=== PATIENT | female | born 1990 | race Caucasian/White ===

== ENCOUNTER 2016-05-07 08:27 | Day surgery (SDC) | payer BC, OTHER ==
[2016-05-06 09:11] VITALS: BMI 23.1
[~2016-05-07 08:27] MED LIST: LACTATED RINGERS 1,000 ML IV SCH
[2016-05-07 08:56] VITALS: RESP 16; TEMP 97
[2016-05-07] MEDS ORDERED: LIDOCAINE 1% 20 ML VIAL (10MG/ML) FOR IV START INTRADERMA ONE (09:02)
[2016-05-07] MEDS ORDERED: MIDAZOLAM 2 MG/2 ML VIAL ONE (09:11)
[2016-05-07] MEDS ORDERED: PROPOFOL 10 MG/ML 20 ML VIAL IV ONE (09:11)
[2016-05-07] MEDS ORDERED: fentaNYL (PF) 50 MCG/ML 2 ML AMP ONE (09:11)
--- NOTE | 2016-05-07 09:26 | P.GSHP ---
History of Present Illness H&P Date: 05/07/16 Chief Complaint: Colitis, GI bleed This a 25-year-old female with history of colitis. Patient's had GI bleed. She presents today for colonoscopy. Past Medical History Additional Past Medical History / Comment(s): Hx. of Colitis-flare up currently History of Any Multi-Drug Resistant Organisms: None Reported Past Surgical History: Cholecystectomy Additional Past Surgical History / Comment(s): Colonoscopy x 2 Past Anesthesia/Blood Transfusion Reactions: No Reported Reaction Past Psychological History: No Psychological Hx Reported Smoking Status: Never smoker Past Alcohol Use History: Occasional Past Drug Use History: None Reported - Past Family History Mother Family Medical History: No Reported History Medications and Allergies Home Medications Medication Instructions Recorded Confirmed Type Multivitamins, Thera [Multivitamin] 1 tab PO DAILY 03/05/16 05/07/16 History [place]-3 Fatty Acids [[place]-3] 1,000 mg PO DAILY 03/05/16 05/07/16 History Allergies Allergy/AdvReac Type Severity Reaction Status Date / Time Penicillins Allergy Unknown Verified 05/07/16 08:56 Childhood Sulfa (Sulfonamide Allergy Unknown Verified 05/07/16 08:56 Antibiotics) Childhood aspirin AdvReac lightheaded Verified 05/07/16 08:56 Surgical - Exam Vital Signs Temp Pulse Resp BP Pulse Ox 97 F L 75 16 110/68 99 05/07/16 08:55 05/07/16 08:55 05/07/16 08:55 05/07/16 08:55 05/07/16 08:55 - General well developed, no distress - Eyes PERRL - ENT normal pinna - Neck no masses - Respiratory normal expansion - Cardiovascular Rhythm: regular - Abdomen Abdomen: soft, non tender Assessment and Plan Plan: History of colitis. GI bleed. We'll perform colonoscopy.
--- NOTE | 2016-05-07 09:36 | P.OP ---
Date of Procedure: 05/07/16 Preoperative Diagnosis: Colitis Postoperative Diagnosis: Colitis Procedure(s) Performed: Colonoscopy Anesthesia: MAC Surgeon: Tyson Simpson Pathology: other (Right colon, left colon, sigmoid colon and rectum) Condition: stable Disposition: PACU Description of Procedure: The patient's placed on the endoscopy table in the lateral position. She received IV sedation. Digital rectal exam was performed which revealed no abnormalities. Flexible colonoscope was then placed patient anus and passed throughout the entire colon. The ileocecal valve was visualized. The cecum appeared normal. In the distal ascending colon there previous of inflammation this area is biopsied. The inflammation seen and transverse colon. The scope was then brought back and the descending and sigmoid colon and there was evidence of inflammation. The descending colon and sigmoid colon biopsied. Scope summer back the rectum and there were some inflammatory changes in this area is biopsied as well. The scope was withdrawn for patient.
[2016-05-07 09:59] VITALS: BP 102/61; PULSE 71
== END 2016-05-07 10:23 | disposition home or self-care (01) ==
LOC: ORWHC2ENDO 08:27
PROVIDERS: ATTEND Surgery
DX: K52.9 Noninfective gastroenteritis and colitis, unspecified (principal); Z87.19 Personal history of other diseases of the digestive system; Z79.899 Other long term (current) drug therapy; Z88.0 Allergy status to penicillin; Z88.2 Allergy status to sulfonamides
CPT/HCPCS: 81025; 88305; 45380; J2250; J3010; J2704; 99153

== ENCOUNTER → 2018-09-06 | Outpatient (CLI) | payer BC | END | disposition home or self-care (01) | LOC: LABWHC1 11:12 | PROVIDERS: ATTEND Student in an Organized Health Care Education/Training Program | DX: K51.90 Ulcerative colitis, unspecified, without complications (principal); Z88.0 Allergy status to penicillin; Z88.2 Allergy status to sulfonamides; Z88.5 Allergy status to narcotic agent | CPT/HCPCS: 83993; 87045; 87046; 87324 ==

== ENCOUNTER → 2019-09-21 | Outpatient (CLI) | payer OTHER ==
[2019-09-21 11:55] LABS: HCT 34.2 % (34.0-46.0); HGB 10.6 gm/dL (11.4-16.0); Hypochromasia Slight; MCH 26.6 pg (25.0-35.0); MCHC 30.9 g/dL (31.0-37.0); MCV 86.2 fL (80.0-100.0); Mean Platelet Volume 7.6; Platelet Count 270 k/uL (150-450); RBC 3.97 m/uL (3.80-5.40); RDW 13.7 % (11.5-15.5); WBC 9.7 k/uL (3.8-10.6)
[2019-09-21 18:55] LABS: % Iron Saturation 10.29 (12.00-45.00); ALT 12 U/L (8-44); AST 14 U/L (13-35); African American GFR (CKD) 136.7 (60.0-200.0); Albumin/Globulin Ratio 1.59 (1.60-3.17); Alkaline Phosphatase 52 U/L (41-126); BUN/Creat Ratio 11.43 Ratio (12.00-20.00); C Reactive Protein <0.4 mg/dL (0.0-0.8); Calcium 9.4 mg/dL (8.7-10.3); Carbon Dioxide 30.1 mmol/L (21.6-31.8); Chloride 102 mmol/L (96-109); Ferritin 4.1 ng/mL (10.0-291.0); Folate, Serum >24.0 ng/mL; Globulin 2.7 g/dL (1.6-3.3); Glucose 79 mg/dL (70-110); Iron 39 ug/dL (50-170); Non-African American GFR(CKD) 117.9 (60.0-200.0); Potassium 4.3 mmol/L (3.5-5.5); Sodium 140 mmol/L (135-145); Total Bilirubin 0.5 mg/dL (0.3-1.2); Total Iron Binding Capacity 379 ug/dL (228-460)
== END | disposition home or self-care (01) ==
LOC: LABWHC1 11:04
PROVIDERS: ATTEND Student in an Organized Health Care Education/Training Program
DX: K51.90 Ulcerative colitis, unspecified, without complications (principal)
CPT/HCPCS: 36415; 80053; 82607; 82728; 82746; 83540; 83550; 83993; 85027; 86140; 87045; 87046; 87324

== ENCOUNTER → 2019-10-24 | Outpatient (CLI) | payer OTHER ==
[2019-10-24 21:26] LABS: Hepatitis B Surface Antigen Non-Reactive (Non-Reactive)
== END | disposition home or self-care (01) ==
LOC: LABWHC1 10:36
PROVIDERS: ATTEND Student in an Organized Health Care Education/Training Program
DX: K51.90 Ulcerative colitis, unspecified, without complications (principal)
CPT/HCPCS: 36415; 86480; 86704; 87340

== ENCOUNTER → 2020-08-05 | Outpatient (CLI) | payer OTHER ==
[2020-08-05 19:12] LABS: Basophils # (A) 0.04 X 10*3/uL (0.00-0.10); Basophils % (A) 0.7 %; Eosinophils # (A) 0.38 X 10*3/uL (0.04-0.35); Eosinophils % (A) 6.5 %; HCT 37.3 % (37.2-46.3); HGB 12.3 g/dL (12.0-15.0); Lymphocytes # (A) 1.79 X 10*3/uL (0.90-5.00); Lymphocytes % (A) 30.7 %; Monocytes % (A) 5.1 %; Neutrophils # (A) 3.31 X 10*3/uL (1.80-7.70); Neutrophils % (A) 56.8 %; Platelet Count 250 X 10*3/uL (140-440); RDW 12.5 % (11.5-14.5); WBC 5.83 X 10*3/uL (4.50-10.00)
[2020-08-05 21:17] LABS: African American GFR (CKD) 135.7 (60.0-200.0); Albumin 4.6 g/dL (3.80-4.90); Albumin/Globulin Ratio 1.92 (1.60-3.17); Anion Gap 8.5 mmol/L (4.00-12.00); BUN/Creat Ratio 17.14 Ratio (12.00-20.00); Calcium 8.9 mg/dL (8.7-10.3); Carbon Dioxide 26.5 mmol/L (21.6-31.8); Globulin 2.4 g/dL (1.6-3.3); Non-African American GFR(CKD) 117.1 (60.0-200.0); Total Bilirubin 0.5 mg/dL (0.2-1.2)
== END | disposition home or self-care (01) ==
LOC: LABWHC1 11:20
PROVIDERS: ATTEND Student in an Organized Health Care Education/Training Program
DX: K51.90 Ulcerative colitis, unspecified, without complications (principal)
CPT/HCPCS: 36415; 80053; 85025